=== PATIENT | male | born 1960 | race Caucasian/White ===

== ENCOUNTER 2017-08-02 12:34 | Emergency (ER) | payer OTHER, SELFPAY ==
[2017-08-02 12:35] VITALS: BP 138/95; PULSE 109; RESP 18; TEMP 36.6; O2SAT 98; BMI 32.8
--- NOTE | 2017-08-02 13:12 | CT_ITS ---
STUDY: CT ABDOMEN AND PELVIS WITHOUT CONTRAST REASON FOR EXAM: Male, 56 years old. Rectal bleeding. History of diverticulitis. RADIATION DOSAGE (If Supplied By Facility): CTDIvol = ( 16.78 ) mGy, DLP = ( 765.28 ) mGycm TECHNIQUE: Transaxial images were obtained from the dome of the diaphragm to the symphysis pubis without oral contrast, and without intravenous contrast. Sagittal and coronal images were reconstructed. Individualized dose optimization techniques were used for this CT. COMPARISON: None. FINDINGS: There is a 2 mm calcified granuloma in the right lower lobe, best seen on image 1 of series 3. The lungs are otherwise unremarkable. The visualized portions of the heart are within normal limits. Normal liver. Normal gallbladder and extrahepatic biliary system. Normal spleen. Normal pancreas. Normal bilateral adrenal glands. Normal right kidney. Normal visualized right ureter. There is a 4 x 2 x 4 mm calcification in the lower pole calyx of an otherwise normal left kidney. Normal visualized left ureter. Normal visualized stomach. Normal small intestine. Is descending and sigmoid diverticuli without acute inflammatory change. The proximal colon is unremarkable. The appendix is visualized and appears normal. Minimal atherosclerotic changes of the distal abdominal aorta without aneurysm. Normal inferior vena cava. Normal retroperitoneum. Evaluation of the deep pelvic structures is limited due to scatter artifact from a right artificial hip. The urinary bladder is incompletely distended. The prostate is enlarged and invaginates into the bladder floor. There is no pelvic lymphadenopathy. No free air or free fluid is seen within the peritoneal cavity. Normal abdominal wall. There are diffuse degenerative changes of the visualized lumbar spine. CT/Abdomen/Pelvis without Cont IMPRESSION: 1. Diverticulosis without acute inflammatory change. 2. Nonobstructing left renal calculus. 3. Enlarged prostate. 4. Right hip replacement. 5. Degenerative changes of the lumbar spine. 6. Calcified granuloma in the right lower lobe. Electronically Signed: Oliver Adam DO at 14:48 EDT Tel [phone], Service support ,
[2017-08-02] MEDS: 0.9% Normal Saline 1,000 ML 125 ML IV (13:31)
[2017-08-02 13:41] VITALS: BP 114/75; BP 118/76; BP 125/79; PULSE 75; PULSE 84; PULSE 87
[2017-08-02 13:51] LABS: Absolute Lymphocyte Count 1.69 X10^3/ul (0.83-4.51); Absolute Neutrophil Count 5.6 X10^3/uL (2.0-7.7); Basophil# 0.02 X10^3/uL; Basophil% 0.2 % (0-1); Eosinophil# 0.05 X10^3/uL; Eosinophils% 0.6 % (0-5); Hematocrit 44.9 % (40-54); Hemoglobin 15.5 g/dl (13.0-16.5); Lymphocyte # 1.69 X10^3/ul (4.0); Lymphocyte % 19.7 % (19-41); Mean Corp Hgb Conc 34.5 g/gl (32-36); Mean Corpuscular Hgb 31.2 pg (27.0-32.0); Mean Corpuscular Volume 90.3 fL (80-94); Mean Platelet Vol. 10.4 fl (6.2-12.0); Monocyte# 1.22 X10^3/uL; Monocyte% 14.2 % (0-10); Neutrophil # 5.55 X10^3/uL (2.7-7.7); Neutrophil % 64.8 % (47-70); POSITIVE COUNT NO; POSITIVE DIFFERENTIAL NO; POSITIVE MORPHOLOGY NO; Platelet Count 236 K/mm3 (150-450); RBC Distribution Width CV 12.7 % (11.6-14.6); RBC Distribution Width SD 41.4 fl (35.1-43.9); Red Blood Count 4.97 M/mm3 (4.6-6.2); White Blood Count 8.6 K/mm3 (4.4-11.0)
[2017-08-02 13:59] LABS: Anion Gap 6 (5-15); BUN 18 mg/dL (7-18); BUN/Creat Ratio 17.6 RATIO (10-20); Chloride 109 mmol/L (98-107); Creatinine, Serum 1.02 mg/dL (0.70-1.30); EST Glomerular Filtration Rate 80 mL/min (>60); Est Glom Filt Rate - Afr Amer 97 mL/min (>60); Glucose 94 mg/dL (74-106); Potassium 3.8 mmol/L (3.5-5.1); Sodium Level 141 mmol/L (136-145)
[2017-08-02 14:09] VITALS: BP 114/75; PULSE 71; RESP 16; O2SAT 98
[2017-08-02 15:34] VITALS: BP 103/76; PULSE 88; RESP 16; O2SAT 95
--- NOTE | 2017-08-02 15:39 | ED.VISSUMM ---
- ER Visit Summary Date of Service: 08/02/17 Chief Complaint: [Rectal bleeding] History of Present Illness: The patient is a 56 M [presents the emergency department with rectal bleeding that started 6 days ago. Patient was seen by his primary care physician started on hydrocortisone suppositories. Patient had been on a liquid diet. Patient states that he thought the bleeding had resolved yesterday but then today had another episode of bright red blood per rectum. Patient also states he developed some mild discomfort in his lower abdomen today. Patient has a history of diverticulitis. Patient's last colonoscopy was about a year and a half ago by a physician in [place] who has since retired. Patient has a history of hypertension and cholesterol.] Physical Examination: [HEENT-PERRLA, EOMI. Cranial nerves II through XII grossly intact. TMs clear. Mucous membranes moist. No adenopathy. Cardiovascular-regular rate and rhythm without murmur or ectopy Lungs-clear to auscultation, chest wall stable without crepitus or subcu emphysema Abdomen-normoactive bowel sounds, soft, nontender, no rebound or rigidity, no peritoneal signs. Rectal exam-no stool in rectal vault, no external hemorrhoids noted, no masses in the rectal vault noted. Hemoccult was positive Extremities-intact ?4, normal range of motion, normal pulses, atraumatic] Test Results: [CBC with differential obtained showed a white count of 8.6, hemoglobin 15, hematocrit 45, platelets 236. Chemistries were normal. Hemoccult was positive and orthostatics were negative.] Emergency Department Course and Treatment: [Patient received normal saline] Treatment Plan: [At this point I discussed case with Dr. Godfrey Downey who will see patient in follow-up in the office. Patient is hemodynamically stable and I do not feel requires admission as he is not on any anticoagulation. Patient advised to return if persistent or heavy bleeding, lightheadedness, dizziness, severe abdominal pain, or condition should worsen in any way.] Disposition: [Discharged home in stable condition] Impression: [Lower GI bleed-stable] This note was generated with [employer] dictation software. It may contain incorrect words, spelling, and punctuation that were not noted in review of the chart prior to signing ED Disposition - Plan for ED Patient: Chief Complaint: GI Bleed Referrals: Harvinder Robles [Primary Care Provider] -
--- NOTE | 2017-08-02 15:41 | ED.DEP ---
ED Disposition - Plan for ED Patient: Chief Complaint: GI Bleed Instructions: ED Hematochezia Stable Referrals: Harvinder Robles [Primary Care Provider] - Godfrey Downey MD [STAFF PHYSICIAN] - 3-5 Days Elmer Yap MD [STAFF PHYSICIAN] - 3-5 Days Additional Instructions: clear liquids for 24 hrs
[2017-08-02 15:49] VITALS: BP 103/76; PULSE 80; RESP 14; O2SAT 96
== END 2017-08-02 15:50 | disposition home or self-care (01) ==
PROVIDERS: Emergency Provider Emergency Medicine; Family Provider Family Medicine; PCP Family Medicine
DX: K92.2 Gastrointestinal hemorrhage, unspecified (principal); I10 Essential (primary) hypertension; E78.00 Pure hypercholesterolemia, unspecified; Z72.0 Tobacco use
CPT/HCPCS: 74176; 80048; 82274; 85025; 86850; 86900; 99283; J7030; A4216

== ENCOUNTER 2019-09-17 15:03 | Emergency (ER) | payer OTHER, SELFPAY ==
[2019-09-17 15:08] VITALS: BP 151/93; PULSE 66; RESP 13; TEMP 36.8; O2SAT 98; BMI 29.7
[2019-09-17 15:16] VITALS: BP 144/84; PULSE 72; RESP 12; O2SAT 97
[2019-09-17 16:34] LABS: Absolute Lymphocyte Count 1.56 X10^3/uL (0.83-4.51); Absolute Neutrophil Count 5.4 X10^3/uL (2.0-7.7); Basophil# 0.04 X10^3/uL; Basophil% 0.5 % (0-1); Eosinophils% 1.3 % (0-5); Hematocrit 41.5 % (40-54); Hemoglobin 14.4 g/dL (13.0-16.5); Lymphocyte # 1.56 X10^3/ul (4.0); Mean Corp Hgb Conc 34.7 g/dL (32-36); Mean Corpuscular Hgb 31.9 pg (27.0-32.0); Mean Corpuscular Volume 91.8 fL (80-94); Monocyte# 0.67 X10^3/uL; Monocyte% 8.6 % (0-10); NRBC Flagged by Analyzer 0 % (0-5); Neutrophil # 5.37 X10^3/uL (2.7-7.7); Neutrophil % 68.8 % (47-70); Platelet Count 233 K/mm3 (150-450); RBC Distribution Width CV 12.4 % (11.6-14.6); RBC Distribution Width SD 41.3 fl (35.1-43.9); Red Blood Count 4.52 M/mm3 (4.6-6.2); White Blood Count 7.8 K/mm3 (4.4-11.0)
[2019-09-17 16:38] LABS: International Normalized Ratio 1.1; Prothrombin Time (Protime)PT. 13.4 SECONDS (11.7-14.9)
[2019-09-17 16:52] LABS: Anion Gap 8 (5-15); BUN 18 mg/dL (7-18); BUN/Creat Ratio 20.1 RATIO (10-20); Calcium,Total 9.1 mg/dL (8.5-10.1); Chloride 109 mmol/L (98-107); EST Glomerular Filtration Rate 92 mL/min (>60); Est Glom Filt Rate - Afr Amer 112 mL/min (>60); Estimated Creatinine Clearance 82.63 ml/min; Glucose 102 mg/dL (74-106); Potassium 3.6 mmol/L (3.5-5.1); Sodium Level 142 mmol/L (136-145)
--- NOTE | 2019-09-17 17:05 | ED.DCSUM_ITS ---
History of Present Illness Chief Complaint: GI Bleed Informant: Patient - Abdominal Pain/Flank Pain Onset: Today Context: Sudden Onset Timing: Intermittent - Nausea/Vomiting/Emesis GI Symptom: Negative for: Nausea, Vomiting - Diarrhea/Melena/Hematochezia GI Symptom: Negative for: Diarrhea Narrative: Patient is a 59-year-old male with history of hypertension, hyperlipidemia and constipation after spinal surgery. Patient states he has to manually disimpact him self daily to have a bowel movement. He states today he had 3 bowel movements where afterwards there was bright red blood. He denies any clots. He denies any lightheadedness or abdominal pain. Patient denies any melanotic stools. He denies any pain with bowel movements with wiping. He states he does have a known history of hemorrhoids. He feels that it was a lot of blood in his stool but notes that it is hard to quantify. Patient states he has similar episode 2-1/2 years ago. At that time he followed up with MARIANO Mohan, who did not recommend further colonoscopy or further stain. Patient has had routine screening colonoscopies in the past which showed diverticula but no other acute process. Patient denies any other complaints at this time. He is not on any anticoagulation. Past Medical History - Allergies and Home Meds Allergies/Adverse Reactions: Allergies amoxicillin Allergy (Verified 09/17/19 15:06) Rash Penicillins Allergy (Verified 09/17/19 15:06) Rash Primary Care Physician: Harvinder Robles DO [Primary Care Provider] - Godfrey Downey MD [NON-STAFF] - Past Medical History: - - Hypertension, hyperlipidemia Surgical History: noncontributory, - - Back surgery Lives: Alone Smoking Status: Never smoker Review of Systems General: Denies: Chills, Fever, Sweats Eyes: Denies: Visual changes - bilaterally, Diplopia ENT: Denies: Rhinorrhea, Sore throat Cardiovascular: Denies: Chest pain, Palpitations Respiratory: Denies: Dyspnea, Cough, Dyspnea on exertion Gastrointestinal: Reports: Hematochezia. Denies: Abdominal pain, Nausea, Vomiting, Diarrhea, Melena Genitourinary: Denies: Dysuria, Hematuria, Frequency Musculoskeletal: Denies: Back pain, Extremity Pain Skin: Denies: Rash, Wounds Neurological: Denies: Headache, Weakness, Numbness Physical Exam Vital Signs/Narrative: Vital Signs Temp Pulse Resp BP Pulse Ox 09/17/19 15:16 72 12 144/84 H 97 09/17/19 15:08 98.2 F 66 13 151/93 H 98 Inital Vital Signs reviewed: Yes General: Well nourished, Well developed, No Acute Distress Head: Normocephalic, Atraumatic Eyes: Perrl, EOMI. Negative for: Pale conjunctiva ENT: Moist mucous membranes, No rhinorrhea Neck: Supple, Nontender Cardiovascular: Regular rate, Regular rhythm, No murmurs Respiratory: No distress, CTA bilaterally, Chest nontender Abdomen: Soft, Nontender, Nondistended, Normal bowel sounds Rectal: Guaiac positive, Nontender, - - No obvious blood on exam, enlarged hemorrhoid at the 5 o'clock position present but not thrombosed Back: Nontender, Normal Inspection. Negative for: CVA tenderness, Spinal tenderness Extremities: Nontender, No edema Skin: Normal color, No rash. Negative for: Pallor Neurological: Alert, Oriented x3, Cranial nerves II-XII grossly intact, Normal Strength, Normal Sensation Psychological: Normal affect, Normal Mood Diagnostic/Tx/Re-eval Laboratory Data 09/17/19 09/17/19 09/17/19 16:08 16:08 16:08 WBC 7.8 RBC 4.52 L Hgb 14.4 Hct 41.5 MCV 91.8 MCH 31.9 MCHC 34.7 RDW Std Deviation 41.3 RDW Coeff of Jesus 12.4 Plt Count 233 MPV 10.0 Immature Gran % (Auto) 0.800 Neut % (Auto) 68.8 Lymph % (Auto) 20.0 Douglas % (Auto) 8.6 Eos % (Auto) 1.3 Baso % (Auto) 0.5 Absolute Neuts (auto) 5.4 Absolute Lymphs (auto) 1.56 Nucleated RBC % 0 PT 13.4 INR 1.1 Sodium 142 Potassium 3.6 Chloride 109 H Carbon Dioxide 25.0 Anion Gap 8 BUN 18 Creatinine 0.90 Estim Creat Clear Calc 82.63 Est GFR (MDRD) Af Amer 112 Est GFR (MDRD) Non-Af 92 BUN/Creatinine Ratio 20.1 H Glucose 102 Calcium 9.1 - Medical Decision Making Patient is evaluated for 1 day of bright red blood per rectum. He appears nontoxic in no acute distress. He does have a hernia and small amount of pink blood on rectal exam. Is guaiac positive. Patient is a normal BUN to creatinine ratio. He is not anemic. He is hemodynamically stable. He is not on any oral anticoagulation. While patient likely is having a lower GI bleed whether it is hernial bleed or colonic, I do feel he is stable for outpatient follow-up. He is a patient of MARIANO Mohan, and is instructed to call the office for follow-up. Patient is counseled on signs and symptoms require return to the emergency room. He is instructed to return should he have any worsening symptoms. He verbalizes agreement understand this plan. He is discharged home in stable condition. He does not have any significant episodes of bleeding while in the emergency room. ED Disposition - Plan for ED Patient: Disposition: Home or Assisted Living Diagnosis: Bright red blood per rectum Instructions: ED Hematochezia Stable Referrals: Harvinder Robles DO [Primary Care Provider] - Godfrey Downey MD [NON-STAFF] -
[2019-09-17 17:38] VITALS: BP 142/80; PULSE 68; RESP 17; O2SAT 98
== END 2019-09-17 17:40 | disposition home or self-care (01) ==
PROVIDERS: Emergency Provider Emergency Medicine; PCP Family Medicine
DX: K92.1 Melena (principal); R11.2 Nausea with vomiting, unspecified; R10.9 Unspecified abdominal pain; K64.9 Unspecified hemorrhoids; I10 Essential (primary) hypertension; E78.5 Hyperlipidemia, unspecified; Z88.0 Allergy status to penicillin
CPT/HCPCS: 80048; 82274; 85025; 85610; 99285

== ENCOUNTER → 2020-05-01 07:51 | Outpatient (CLI) | payer OTHER, SELFPAY ==
--- NOTE | 2020-05-01 08:01 | EKG12_ITS ---
Test Reason : PREOP Blood Pressure : / mmHG Vent. Rate : 075 BPM Atrial Rate : 075 BPM P-R Int : 146 ms QRS Dur : 134 ms QT Int : 366 ms P-R-T Axes : 070 111 048 degrees QTc Int : 408 ms Normal sinus rhythm Right bundle branch block Abnormal ECG Confirmed by LENNY MCCORMICK, ELIU ([id number]), marketing editor BINDU GUTIERREZ ([id number]) on 05/05/2020 8:07:48 AM Referred By: Som Contreras Confirmed By:ELIU GALVEZ MD
[2020-05-01 08:26] LABS: Absolute Lymphocyte Count 1.93 X10^3/uL (0.83-4.51); Absolute Neutrophil Count 4.7 X10^3/uL (2.0-7.7); Basophil# 0.05 X10^3/uL; Basophil% 0.7 % (0-1); Eosinophil# 0.11 X10^3/uL; Eosinophils% 1.5 % (0-5); Hemoglobin 15.6 g/dL (13.0-16.5); Lymphocyte # 1.93 X10^3/ul (4.0); Lymphocyte % 25.8 % (19-41); Mean Corp Hgb Conc 33.2 g/dL (32-36); Mean Corpuscular Hgb 30.8 pg (27.0-32.0); Mean Corpuscular Volume 92.9 fL (80-94); Mean Platelet Vol. 9.9 fl (6.2-12.0); Monocyte# 0.67 X10^3/uL; Monocyte% 8.9 % (0-10); NRBC Flagged by Analyzer 0 % (0-5); Neutrophil # 4.66 X10^3/uL (2.7-7.7); Neutrophil % 62.2 % (47-70); Platelet Count 273 K/mm3 (150-450); RBC Distribution Width CV 12.4 % (11.6-14.6); RBC Distribution Width SD 42.6 fl (35.1-43.9); Red Blood Count 5.06 M/mm3 (4.6-6.2); White Blood Count 7.5 K/mm3 (4.4-11.0)
[2020-05-01 08:55] LABS: Anion Gap 2 (5-15); BUN 18 mg/dL (7-18); Calcium,Total 9.1 mg/dL (8.5-10.1); Chloride 110 mmol/L (98-107); Creatinine, Serum 0.86 mg/dL (0.70-1.30); EST Glomerular Filtration Rate 97 mL/min (>60); Est Glom Filt Rate - Afr Amer 117 mL/min (>60); Glucose 92 mg/dL (74-106); Potassium 3.9 mmol/L (3.5-5.1); Sodium Level 142 mmol/L (136-145)
== END ==
PROVIDERS: PCP Family Medicine; Referring Provider Physician Assistant; Visit Provider Physician Assistant
DX: Z01.818 Encounter for other preprocedural examination (principal)
CPT/HCPCS: 36415; 80048; 85025; 93005

== ENCOUNTER → 2020-05-07 15:15 | Outpatient (CLI) | payer OTHER, SELFPAY ==
--- NOTE | 2020-05-07 | HIP_PTH ---
PATIENT: ARPAN ALVAREZ LOC: [facility] U#:[id number] AGE/SX: 64/M ROOM: RE05/07/[address]: Dr. Jared Navarro DO : 1960 BED: DIS: SPEC #: [id number] RECD: 05/08/20 06:48 STATUS: SUZANNE ROBERTO #: [id number] KELVIN: 05/07/20 00:[address]: Jared Navarro DEPT: SURGICAL PATHOLOGY RECD BY: Karissa Pillai ENTERED: 05/08/20 06:49 SP TYPE: TOTAL HIP OTHR DR: JUDY Tissues: Hip, NOS Procedures: Decalcification bone/plaque Surgery Specimen Level IV HEADER OPERATION: Left total hip arthroplasty PRE-OP DIAGNOSIS: Osteoarthritis left hip TISSUE SUBMITTED: Bone left hip MICROSCOPIC DIAGNOSIS Bone left hip, total hip arthroplasty: Femoral head with degenerative osteoarthritic changes. Fragments of fibroadipose tissue and reactive synovial tissue. SJ:david 05/14/2020 MICROSCOPIC DESCRIPTION Slides are reviewed. GROSS DESCRIPTION Received is one container labeled with the patient's name and designated bone and soft tissue hip, left. The specimen consists of a femoral head measuring 6.5 x 5 x 5 cm. The articular surface displays prominent osteophyte formation, eburnation and bone erosion. Also present in the specimen container are multiple irregular fragments of bone reamings and pink-yellow soft tissue measuring in aggregate 10 x 7 x 2 cm. Wirer sections are submitted in two cassettes as follows: 1 - soft tissue, 2 - bone after decalcification. / AM:david 05/08/20 TC:5 CPT: 71634, 24173
== END ==
PROVIDERS: Visit Provider Orthopaedic Surgery
DX: M16.12 Unilateral primary osteoarthritis, left hip (principal)
CPT/HCPCS: 88305; 88311

== ENCOUNTER 2023-08-29 07:50 | Day surgery (SDC) | payer BC, SELFPAY ==
[2023-08-29 08:08] VITALS: BP 125/74; PULSE 74; RESP 16; TEMP 36.4; O2SAT 97; BMI 31.1
[2023-08-29] MEDS: Lactated Ringers 1,000 ML 15 ML IV (08:13)
--- NOTE | 2023-08-29 08:41 | PCM.HP.STD ---
[facility] - General General Date of Admission: 08/29/23 Date of Service: 08/29/23 Chief Complaint: Screening colonoscopy HPI Narrative ARPAN ALVAREZ, is a 63 M who presents today for surveillance colonoscopy. He has had colonoscopies in the past. His colonoscopies were in 2004, 2006 and 2016. He had adenomatous polyps each time. He comes in today for surveillance colonoscopy. Does not have any nausea, vomiting, diarrhea. Overall is in very good health. COUNT INCLUDES THE [facility] Medical History (Updated 08/23/23 @ 15:05 by Teo Johnson) HTN (hypertension) Hx of diverticulitis of colon Hypercholesterolemia Osteoarthritis of hip Wears glasses Home Medications simvastatin 20 mg tablet 20 mg PO QHS cholesterol 09/17/19 [History Last Taken 09/16/19] valsartan 160 mg tablet 160 mg PO DAILY bp 09/17/19 [History Last Taken 08/29/23] Allergy/AdvReac Type Severity Reaction Status Date / Time amoxicillin Allergy Rash Verified 08/29/23 08:07 Penicillins Allergy Rash Verified 08/29/23 08:07 Surgical History (Updated 08/23/23 @ 15:05 by Teo Johnson) History of colonoscopy with polypectomy History of hip replacement Hx of lumbar discectomy Social History (Updated 06/30/23 @ 10:12 by Celeste Pascal) household members: spouse current occupational status: employed Smoking Status: Never smoker Smokeless tobacco user: chewing tobacco alcohol intake: never substance use type: does not use ROS Review of Systems ROS Unobtainable: other Constitutional Constitutional: Denies fatigue, fever(s), poor appetite, weight gain or weight loss ENT HEENT: Denies mouth lesions Cardiovascular Cardiovascular: Denies abdominal bloating, abdominal edema or abdominal pain Respiratory/Chest Respiratory/Chest: Denies change in mental status, change in phlegm color, chest congestion or chest tightness Gastrointestinal Gastrointestinal: Denies belching, bloating, change in bowel habits, change in stool character, chewing difficulty, coffee ground emesis, constipation, cramping, diarrhea, dyspepsia, dysphagia, early satiety, excessive flatus, fecal incontinence, heartburn, hematemesis, hematochezia, hemorrhoids, loose stools, melena, nausea, odynophagia, rectal bleeding, tenesmus, vomiting or weight changes Genitourinary Genitourinary: Denies abdominal discomfort, burning urination or itching Musculoskeletal Musculoskeletal: Reports as per HPI; Denies muscle weakness or myalgias Integumentary Integumentary: Denies jaundice Neurologic Neurologic: Denies lack of coordination or weakness Psychiatric Psychiatric: Denies confusion, depression, memory loss, mood swings, paranoia or suicidal ideation Endocrine Endocrinology: Denies systems reviewed and no addt'l complaints, except as documented Hematologic/Lymphatic Hematologic/Lymphatic: Denies anemia, easy bleeding, easy bruising or lymphadenopathy Allergic/Immunologic Allergic/Immunologic: Denies systems reviewed and no addt'l complaints, except as documented Vital Signs Vital Signs Vital Signs: 08/29/23 08:08 08/29/23 08:08 Temperature 97.6 F L Temperature Source Temporal Pulse Rate 74 Respiratory Rate 16 Respiratory Pattern Normal Blood Pressure 125/74 H Blood Pressure Mean 91 Blood Pressure Source Monitor Blood Pressure Position Semi-Fowlers Blood Pressure Location Left Arm Pulse Ox 97 Oxygen Delivery Method Room Air Weight Weight: 198 lb 6.656 oz Body Mass Index (BMI) 31.1 Physical Exam Const alert General Appearance: cooperative Orientation / Consciousness: oriented to person HEENT hearing grossly normal bilaterally Head and Scalp: normal to inspection Face and Sinus: face symmetric Nose: external nose normal Mouth: oral and palatal mucosa normal Eyes conjunctivae normal General Eye: normal appearance of both eyes Neck full ROM General: normal visual inspection Lymph Lymphatic: no lymphadenopathy noted Chest inspection of chest normal and palpation of chest normal Chest: symmetrical chest wall rise Resp normal respiratory effort Effort and Inspection: able to speak in complete sentences Cardio regular rate GI non-distended Percussion: normal to percussion Rectal Exam: deferred Neuro Speech: speech normal Gait (Neuro): normal gait Assessment & Plan Assessment/Plan (1) Encounter for screening for malignant neoplasm of colon: PLAN: Plan He was explained alternatives, risk, benefits including not withstanding bleeding, infection, sepsis, perforation, need for emergent urgent . He have an ASA of 3.
--- NOTE | 2023-08-29 09:05 | COLBX_PTH ---
PATIENT: ARPAN ALVAREZ LOC: [facility] U#:[id number] AGE/SX: 63/M ROOM: RE08/29/[address]: Dr. Silvano Pulido DO : 1960 BED: DIS: 08/29/2023 SPEC #: [id number] RECD: 08/29/23 13:16 STATUS: SUZANNE CLAYTONRefugio #: [id number] KELVIN: 08/29/23 09:[address]: Silvano Pulido DEPT: SURGICAL PATHOLOGY RECD BY: Britney Palacios ENTERED: 08/29/23 13:43 SP TYPE: COLON BX OTHR DR: Dr. Harvinder Robles DO Tissues: Cecum, NOS Procedures: Surgery Specimen Level IV HEADER OPERATION: Colonoscopy with biopsy PRE-OP DIAGNOSIS: Screening of neoplasm of colon TISSUE SUBMITTED: Cecum polyp biopsy MICROSCOPIC DIAGNOSIS Cecum polyp, biopsy: Fragments of colonic mucosa, no pathologic diagnosis. ELSIE/mr 08/30/2023 MICROSCOPIC DESCRIPTION Slides are reviewed. GROSS DESCRIPTION Received in fixative is one container labeled with the patient's name and designated Cecum polyp biopsy. The specimen consists of two irregular fragments of light morillo soft tissue that in aggregate measure 0.5 x 0.4 x 0.1 cm. The specimen is totally submitted in one cassette. ELSIE/ 08/29/23 TC:4 CPT:74652
--- NOTE | 2023-08-29 09:27 | OP.CCLET_ITS ---
08/29/2023 Harvinder Robles Re : Colonoscopy procedure for Jason Kat Dear Margaret This procedure was performed on Tuesday, August 29, 2023. My impressions and recommendations are as follows: Impressions : - Diverticulosis in the recto-sigmoid colon and in the sigmoid colon. - One 4 mm polyp in the cecum, removed with a jumbo cold forceps. Resected and retrieved. Recommendations : - Repeat colonoscopy in 5 years for surveillance. - Continue present medications. My findings are described in the full procedure note, which is enclosed. If I can be of further assistance, please feel free to contact me at . Sincerely, Silvano Pulido, 08/29/2023 9:27:06 AM This report has been signed electronically.
--- NOTE | 2023-08-29 09:27 | OP.COLON_ITS ---
Patient Name: Jason Kat Procedure Date: 08/29/2023 9:04 AM Date of : 1960 Age: 63 Procedure: Colonoscopy Indications: Screening for colorectal malignant neoplasm Providers: DO Stefania Gaffney MD: Harvinder Robles Medicines: Monitored Anesthesia Care Patient Profile: This is a 63 year old male. Refer to note in patient chart for documentation of history and physical. Last Colonoscopy: several years ago. Complications: No immediate complications. Procedure: Pre-Anesthesia Assessment: - Prior to the procedure, a History and Physical was performed, and patient medications and allergies were reviewed. The patient is competent. The risks and benefits of the procedure and the sedation options and risks were discussed with the patient. All questions were answered and informed consent was obtained. Patient identification and proposed procedure were verified by the physician. Mental Status Examination: normal. Prophylactic Antibiotics: The patient does not require prophylactic antibiotics. Prior Anticoagulants: The patient has taken no anticoagulant or antiplatelet agents. ASA Grade Assessment: III - A patient with severe systemic disease. After reviewing the risks and benefits, the patient was deemed in satisfactory condition to undergo the procedure. The anesthesia plan was to use monitored anesthesia care (MAC). Immediately prior to administration of medications, the patient was re-assessed for adequacy to receive sedatives. The heart rate, respiratory rate, oxygen saturations, blood pressure, adequacy of pulmonary ventilation, and response to care were monitored throughout the procedure. The physical status of the patient was re-assessed after the procedure. After I obtained informed consent, the scope was passed under direct vision. Throughout the procedure, the patient's blood pressure, pulse, and oxygen saturations were monitored continuously. The Colonoscope was introduced through the anus and advanced to the cecum, identified by appendiceal orifice and ileocecal valve. The colonoscopy was performed without difficulty. The patient tolerated the procedure well. The quality of the bowel preparation was adequate. The ileocecal valve, appendiceal orifice, and rectum were photographed. Scope In: 9:13:29 AM Scope Withdrawal Time 0 hours 8 minutes 5 seconds Scope Out: 9:23:52 AM Total Procedure Duration Time 0 hours 10 minutes 23 seconds Findings: The perianal and digital rectal examinations were normal. Multiple small and large-mouthed diverticula were found in the recto-sigmoid colon and sigmoid colon. A 4 mm polyp was found in the cecum. The polyp was sessile. The polyp was removed with a jumbo cold forceps. Resection and retrieval were complete. Verification of patient identification for the specimen was done. Estimated blood loss was minimal. Impression: - Diverticulosis in the recto-sigmoid colon and in the sigmoid colon. - One 4 mm polyp in the cecum, removed with a jumbo cold forceps. Resected and retrieved. Recommendation: - Repeat colonoscopy in 5 years for surveillance. - Continue present medications. Procedure Code(s): --- Professional --- 39529, Colonoscopy, flexible; with biopsy, single or multiple CPT copyright 2021 [employer]. All rights reserved. The codes documented in this report are preliminary and upon medical biller coder review may be revised to meet current compliance requirements. Silvano Pulido DO 08/29/2023 9:27:06 AM This report has been signed electronically. Number of Addenda: 0 Note Initiated On: 08/29/2023 9:04 AM
[2023-08-29 09:30] VITALS: BP 125/74; BP 84/60; PULSE 77; RESP 16; TEMP 36.4; O2SAT 96
[2023-08-29 09:35] VITALS: BP 125/74; BP 80/60; PULSE 72; RESP 16; O2SAT 94
[2023-08-29 09:40] VITALS: BP 125/74; BP 88/60; PULSE 69; RESP 16; O2SAT 96
[2023-08-29 09:45] VITALS: BP 125/74; BP 86/63; PULSE 72; RESP 16; TEMP 36.1; O2SAT 97
[2023-08-29 10:10] VITALS: BP 125/74
== END 2023-08-29 10:13 | disposition home or self-care (01) ==
LOC: EN 07:51 → AC 07:54
PROVIDERS: PCP Family Medicine; Referring Provider Family Medicine; Visit Provider Internal Medicine Gastroenterology
PROC: 0DJD8ZZ Inspection of Lower Intestinal Tract, Via Natural or Artificial Opening Endoscopic (ICD-10-PCS; CPT 45378; principal; 2023-08-29 09:00)
DX: Z12.11 Encounter for screening for malignant neoplasm of colon (principal); K57.30 Diverticulosis of large intestine without perforation or abscess without bleeding; K63.5 Polyp of colon; I10 Essential (primary) hypertension; E78.00 Pure hypercholesterolemia, unspecified; Z86.010 Personal history of colon polyps; Z87.19 Personal history of other diseases of the digestive system; F17.220 Nicotine dependence, chewing tobacco, uncomplicated
CPT/HCPCS: 45380; 88305; J2405

== ENCOUNTER → 2025-01-30 | Outpatient (CLI) | payer BC, SELFPAY ==
[2025-01-30 11:14] LABS: AST(SGOT) 31 U/L (<=37); Alanine Aminotransfer ALT/SGPT 35 U/L (<=46); Albumin, Serum 4.2 g/dL (3.4-4.8); Alkaline Phosphatase 70 U/L (40-129); Anion Gap 13 (5-15); BUN 18 mg/dL (4-19); BUN/Creat Ratio 20.6 RATIO (10-20); Calcium,Total 9.2 mg/dL (7.6-11.0); Carbon Dioxide 20.2 mmol/L (21.0-32.0); Chloride 106 mmol/L (98-108); Cholesterol 155 mg/dL (<=200); Globulin 2.7 g/dL (2.2-4.2); Glucose 92 mg/dL (70-99); Low Density Lipoprotein Calc. 77 mg/dL; Potassium 4.1 mmol/L (3.3-5.1); Triglycerides 139 mg/dL; Very Low Density Lipoprotein 28 mg/dL (5-40); cholesterol:hdl ratio screen 3.09
== END | disposition home or self-care (01) ==
LOC: MFPLAB 08:06
PROVIDERS: PCP Family Medicine; Visit Provider Family Medicine
DX: I10 Essential (primary) hypertension (principal); E78.5 Hyperlipidemia, unspecified
CPT/HCPCS: 36415; 80053; 80061